=== PATIENT | female | born 1930 | race Caucasian/White ===

== ENCOUNTER 2018-11-18 15:28 | Inpatient (IN) | payer MEDICARE, MEDICAID ==
[~2018-11-18] VITALS: Ht 167.6 cm; Wt 98.0 kg
[2018-11-18] MEDS ORDERED: ALBUTEROL FS 2.5 MG/3 ML VIAL.NEB ONE (15:55)
[2018-11-18] MEDS ORDERED: IPRATROPIUM NEB FS 0.5 MG/2.5 ML AMPUL.NEB ONE (15:55)
[2018-11-18] MEDS ORDERED: MEROPENEM 1 G in IV NS 0.9% 100 ML IV ONE (16:00)
[2018-11-18] MEDS ORDERED: IPRATROPIUM NEB FS 0.5 MG/2.5 ML AMPUL.NEB NEB ONE (16:00)
[2018-11-18] MEDS ORDERED: methylPREDNISolone SOD SUCC 125 MG/2ML VIAL IV ONE (16:00)
[2018-11-18] MEDS ORDERED: ACETAMINOPHEN ES 500 MG TABLET PO ONE (16:00)
[2018-11-18] MEDS ORDERED: ALBUTEROL FS 2.5 MG/3 ML VIAL.NEB NEB ONE (16:00)
--- NOTE | 2018-11-18 16:02 | NUR ---
PT REC'D TO ER VIA EMS PT WAS AT AN [facility] IV STARTED RT AC 20G LABS SENT TO LAB CULTURES DRAWN MEDS GIVEN PER MD ORDER
[2018-11-18 16:04] LABS: BASOPHILS % (AUTO) 0.2 % (0.0-2.0); EOSINOPHILS % (AUTO) 1.9 % (0.0-6.0); HEMATOCRIT 34 % (33-45); HEMOGLOBIN 11.2 g/dL (11.5-14.8); LYMPHOCYTES # (AUTO) 1.2 /CMM (0.8-4.8); LYMPHOCYTES % (AUTO) 11.6 % (20.0-44.0); MEAN CORPUSCULAR HGB CONC 33 g/dl (31.0-36.0); MEAN CORPUSCULAR VOLUME 92 fL (82-100); MONOCYTES # (AUTO) 0.8 /CMM (0.1-1.30); MONOCYTES % (AUTO) 7.4 % (2.0-12.0); NEUTROPHILS # (AUTO) 8.3 /CMM (1.8-8.9); NEUTROPHILS % (AUTO) 78.9 % (43.0-81.0); PLATELET COUNT (AUTO) 279 /CMM (150-450); RED BLOOD CELL COUNT(AUTO) 3.68 MIL/uL (4.0-5.2); WHITE BLOOD COUNT (AUTO) 10.5 K/uL (4.3-11.0)
[2018-11-18] MEDS ORDERED: methylPREDNISolone SOD SUCC 125 MG/2ML VIAL ONE (16:04)
[2018-11-18] MEDS ORDERED: ACETAMINOPHEN ES 500 MG TABLET ONE (16:05)
[2018-11-18 16:16] LABS: CALCIUM, SERUM 9.4 mg/dL (8.5-10.1); CARBON DIOXIDE 28 mmol/L (21-32); CHLORIDE 102 mmol/L (98-107); GLUCOSE 116 mg/dL (74-106); SODIUM SERUM 138 mmol/L (136-145); UREA NITROGEN, BLOOD 17 mg/dL (7-18)
[2018-11-18 16:29] LABS: ALANINE AMINOTRANSFERASE 18 U/L (12-78); ALBUMIN 3.6 g/dL (3.4-5.0); ALKALINE PHOSPHATASE 91 U/L (46-116); ASPARTATE AMINOTRANSFERASE 18 U/L (15-37); B-TYPE NATRIURETIC PEPTIDE 818 PG/ML (0-125); BILIRUBIN,DIRECT 0.1 mg/dL (0.0-0.2); BILIRUBIN,TOTAL 0.5 mg/dL (0.2-1.0); TOTAL PROTEIN, SERUM 7.9 g/dL (6.4-8.2)
--- NOTE | 2018-11-18 16:44 | NUR ---
MEDS GIVEN PER MD ORDER
[2018-11-18] MEDS ORDERED: IV NS 0.9% 500 ML BAG IV ONE (17:00)
[2018-11-18] MEDS ORDERED: UMEC62.5 IH (17:10)
[2018-11-18] MEDS ORDERED: LORA0.5T PO (17:10)
[2018-11-18] MEDS ORDERED: CELE-85 PO (17:10)
[2018-11-18] MEDS ORDERED: HYDR-4077 PO (17:10)
[2018-11-18] MEDS ORDERED: ASPI-605 PO (17:10)
[2018-11-18] MEDS ORDERED: AMLO10TA7 PO (17:10)
[2018-11-18] MEDS ORDERED: ATOR20TA PO (17:10)
[2018-11-18] MEDS ORDERED: FURO20TA4 PO (17:10)
[2018-11-18] MEDS ORDERED: CALC500T52 PO (17:10)
[2018-11-18] MEDS ORDERED: CHOL20004 PO (17:10)
[2018-11-18] MEDS ORDERED: FLUT1DIS5 PO (17:10)
[2018-11-18] MEDS ORDERED: MONT10TA22 PO (17:10)
[2018-11-18] MEDS ORDERED: NEBI10TA2 PO (17:10)
[2018-11-18] MEDS ORDERED: TRAM50TA2 PO (17:10)
[2018-11-18] MEDS ORDERED: ALEN70TA6 PO (17:10)
--- NOTE | 2018-11-18 17:12 | NUR ---
CALLED NURSING SUP FOR BED.
--- NOTE | 2018-11-18 17:12 | NUR ---
CALLED [facility].
[2018-11-18] MEDS ORDERED: hydrALAZINE HCL IV 20 MG VIAL IV ONE (17:30)
[2018-11-18] MEDS ORDERED: hydrALAZINE HCL IV 20 MG VIAL ONE (17:42)
--- NOTE | 2018-11-18 17:43 | NUR ---
NURSING SUP GAVE TELE BED 118.
[2018-11-18] MEDS ORDERED: Z GUARD REMEDY 2 OZ OINT TP PRN (18:00)
[2018-11-18] MEDS ORDERED: MAG HYDROX/AL HYDROX/SIMETH 30 ML UDC PO PRN (18:00)
[2018-11-18] MEDS ORDERED: ONDANSETRON HCL/PF 4 MG/2 ML VIAL IVP PRN (18:00)
[2018-11-18] MEDS ORDERED: ZOLPIDEM TARTRATE 5 MG TABLET PO PRN (18:00)
[2018-11-18] MEDS ORDERED: MAGNESIUM HYDROXIDE 30 ML UDC PO PRN (18:00)
[2018-11-18] MEDS ORDERED: ACETAMINOPHEN 325 MG TABLET PO PRN (18:00)
[2018-11-18] MEDS ORDERED: hydrALAZINE HCL 50 MG TABLET PO PRN (18:00)
[2018-11-18] MEDS ORDERED: TRAMADOL HCL 50 MG TABLET PO PRN (18:00)
--- NOTE | 2018-11-18 18:30 | NUR ---
RN NOTES RECEIVED PATIENT FROM ER VIA [facility]. PATIENT A/A/0 X4, ABLE TO COMMUNICATE. ABLE TO MOVE SELF BED FROM BED. WITH NASAL CANNULA OXYGEN AT 2LPM. SKIN ASSESSMENT DONE: NOTED INTACT. IV ACCESS NOTED ON THE RAC G [address] AND PATENT. VITAL SIGNS NOTED AND BP NOTED AT 161/63, HR AT 82 TEMP AT 98.8, SATS AT 98%. PATIENT MADE COMFORTABLE AND WARMTH IN BED. ORIENTED TO UNIT AND USE OF CALL LIGHT. SAFETY MEASURES PUT IN PLACE. BED LOW AND LOCKED POSITION. CALL LIGHT PLACED WITHIN REACH. WILL CONTINUE TO MONITOR PATIENT AND CARRY OUT ADMITTING ORDERS ONCE IN.
--- NOTE | 2018-11-18 18:45 | NUR ---
RN NOTES PAGED DR. AGUILAR TO OBTAIN ADMITTING ORDERS
--- NOTE | 2018-11-18 19:30 | NUR ---
RN NOTES ENDORSED PATIENT FOR CONTINUITY OF CARE. FAMILY AT BEDSIDE WAITING FOR MD. MD AT THE UNIT AT THIS TIME
[2018-11-18 20:00] VITALS: BP 166/69
[2018-11-18] MEDS ORDERED: IPRATROPIUM NEB FS 0.5 MG/2.5 ML AMPUL.NEB NEB PRN (21:00)
[2018-11-18] MEDS ORDERED: GUAIFENESIN/CODEINE 10 ML UDC PO PRN (21:00)
[2018-11-18] MEDS ORDERED: MEROPENEM 1 G in IV NS 0.9% 100 ML IV SCH (21:00)
[2018-11-18] MEDS ORDERED: ALBUTEROL FS 2.5 MG/3 ML VIAL.NEB NEB PRN (21:00)
[2018-11-18] MEDS: HYDROCODONE/APAP 5/325MG 1 EACH TABLET PO PRN (21:14)
[2018-11-18] MEDS: METOPROLOL TARTRATE 50 MG TABLET PO SCH (21:14)
[2018-11-18] MEDS: ATORVASTATIN 10 MG TABLET PO SCH (21:16)
[2018-11-19] VITALS (9 sets, daily range): BP systolic 126–163; BP diastolic 53–75
[2018-11-19] MEDS ORDERED: MEROPENEM 1 G in IV NS 0.9% 100 ML IV SCH (05:00)
[2018-11-19] MEDS: HYDROCODONE/APAP 5/325MG 1 EACH TABLET PO PRN (07:04)
--- NOTE | 2018-11-19 07:10 | NUR ---
RN INITIAL NOTE PATIENT IN BED, ASLEEP BUT EASILY AROUSABLE TO NAME AND TOUCH. NOR[place]GIAN SPEAKING BUT UNDERSTANDS LITTLE SINHALA. ON NC 2L. NO COMPLAINS OF ANY SOB NOR PAIN AT THIS TIME. ON TELE MONITOR, SR. AM LABS PENDING. BED LOCKED AND IN LOWEST POSITION. CALL LIGHT WITHIN REACH. WILL CONTINUE TO MONITOR
--- NOTE | 2018-11-19 07:14 | NUR ---
RN NOTES ALERT AND ORIENTED X 4. UNABLE TO SPEAK HONDURAN BUT CAN UNDERSTAND HONDURAN. SEEN BY MD AT 2100 WITH NEW ORDERS FOR GUAIFENESIN WITH CODEINE AND DUONEB PRN. NOTED AND CARRIED OUT. GAVE NORCO FOR PAIN X 2 WITH RELIEF, ADMINISTERED DUONEB BY RT, AND GUAIFENESIN WITH CODEINE X 2 WITH HELP. NEEDS ATTENDED. KEPT CLEAN AND DRY. ENDORSED TO NEXT SHIFT FOR CONTINUITY OF CARE.
[2018-11-19 07:35] LABS: EOSINOPHILS % (AUTO) 0.1 % (0.0-6.0); HEMATOCRIT 33 % (33-45); HEMOGLOBIN 10.8 g/dL (11.5-14.8); LYMPHOCYTES # (AUTO) 0.7 /CMM (0.8-4.8); LYMPHOCYTES % (AUTO) 7.9 % (20.0-44.0); MEAN CORPUSCULAR HGB CONC 32 g/dl (31.0-36.0); MEAN CORPUSCULAR VOLUME 92 fL (82-100); MONOCYTES # (AUTO) 0.1 /CMM (0.1-1.30); MONOCYTES % (AUTO) 0.7 % (2.0-12.0); NEUTROPHILS # (AUTO) 8.6 /CMM (1.8-8.9); NEUTROPHILS % (AUTO) 91.3 % (43.0-81.0); PLATELET COUNT (AUTO) 255 /CMM (150-450); RED BLOOD CELL COUNT(AUTO) 3.62 MIL/uL (4.0-5.2); WHITE BLOOD COUNT (AUTO) 9.4 K/uL (4.3-11.0)
[2018-11-19 07:51] LABS: CALCIUM, SERUM 8.9 mg/dL (8.5-10.1); CREATININE 1.1 mg/dL (0.6-1.3); MAGNESIUM 1.8 mg/dL (1.8-2.4); PHOSPHORUS 2.9 mg/dL (2.5-4.9); POTASSIUM 4.4 mmol/L (3.5-5.1)
[2018-11-19] MEDS: MONTELUKAST SODIUM (10MG) 10 MG TABLET PO SCH (08:18)
[2018-11-19] MEDS: CELECOXIB 100 MG CAPSULE PO SCH (08:18)
[2018-11-19] MEDS: CHOLECALCIFEROL 1,000 UNIT TABLET (VIT D3) PO SCH (08:18)
[2018-11-19] MEDS: CALCIUM CARBONATE (1250) 500 MG TABLET PO SCH ×2 (08:18→16:18)
[2018-11-19] MEDS: LORAZEPAM 0.5 MG TABLET PO SCH (08:18)
[2018-11-19] MEDS: ASPIRIN EC 81 MG TABLET.DR PO SCH (08:18)
[2018-11-19] MEDS: METOPROLOL TARTRATE 50 MG TABLET PO SCH ×2 (08:19→21:24)
[2018-11-19] MEDS: AMLODIPINE BESYLATE 10 MG TABLET PO SCH (08:19)
[2018-11-19] MEDS: FLUTICASONE/VILANTEROL 1 EACH BLST.W.DEV IH SCH (08:19)
[2018-11-19] MEDS ORDERED: UMECLIDINIUM BROMIDE 62.5 MCG IH SCH (09:00)
[2018-11-19] MEDS ORDERED: FUROSEMIDE 20 MG TABLET PO SCH (09:00)
--- NOTE | 2018-11-19 09:30 | NUR ---
RN NOTE PATIENT'S MORNING BP WAS 163/69. WAS GIVEN HER MORNING BP MEDS, RECHECKED AT THIS TIME. BP IS NOW 140/65
--- NOTE | 2018-11-19 12:17 | NUR ---
RN NOTE DR AGUILAR AT BEDSIDE, PATIENT AWARE THAT SHE WILL BE SEEN BY DR VICTORIA, PERMASTONE APPLICATOR AND GET IN TOUCH WITH HER PERMASTONE APPLICATOR, DR MARIANA MURCIA
[2018-11-19] MEDS ORDERED: AZITHROMYCIN 250 MG TABLET PO SCH (13:00)
--- NOTE | 2018-11-19 19:00 | NUR ---
Received patient awake,alert,not in any distress or SOB,denies any pain,converses , coherent and appropriate.On room air ,tolerating without oxygen.comfort care done,needs attended.
--- NOTE | 2018-11-19 19:09 | NUR ---
RN CLOSING NOTE PATIENT IN BED, SITTING AND AWAKE. FAMILY AT BEDSIDE. ALL MEDS GIVEN. ALL NEEDS MET. NO COMPLAINS OF ANY PAIN NOR SOB AT THIS TIME. HAS A NEW SITE RIGHT FA #22 SL. LAST IV SITE WAS INFILTRATED AND REMOVED. BED LOCKED AND IN LOWEST POSITION. CALL LIGHT WITHIN REACH. WILL CONTINUE TO MONITOR. ENDORSED TO NOC SHIFT FOR CLEO
--- NOTE | 2018-11-19 21:00 | NUR ---
ambulated around the unit with a walker, tolerated even without oxygen,denies any SOB.
[2018-11-19] MEDS: ATORVASTATIN 10 MG TABLET PO SCH (21:24)
--- NOTE | 2018-11-19 21:30 | NUR ---
Patient denies any SOB after walking without the oxygen , but noted sdaturation only 91 % on room air,placed on nasal cannula 3 L/min for now.
[2018-11-20] VITALS (8 sets, daily range): BP systolic 139–178; BP diastolic 65–80
--- NOTE | 2018-11-20 | NUR ---
pATIENT ASLEEP ,STABLE,NOT IN ANY RESPIRATORY DISTRESS,BREATHING NON LABORED.
--- NOTE | 2018-11-20 04:00 | NUR ---
REMAINS STABLE,NOT IN ANY DISTRESS.
--- NOTE | 2018-11-20 06:00 | NUR ---
REMAINS STABLE,AWAKE,ALERT,NOT IN ANY DISTRESS, JUST ON ROOM AIR.
--- NOTE | 2018-11-20 07:00 | NUR ---
REPORT GIVEN TO KARRI GALVIN.PATIENT STABLE.
[2018-11-20 07:06] LABS: BASOPHILS % (AUTO) 0.1 % (0.0-2.0); HEMATOCRIT 30 % (33-45); HEMOGLOBIN 9.8 g/dL (11.5-14.8); LYMPHOCYTES # (AUTO) 1.6 /CMM (0.8-4.8); LYMPHOCYTES % (AUTO) 16.3 % (20.0-44.0); MEAN CORPUSCULAR HGB CONC 33 g/dl (31.0-36.0); MEAN CORPUSCULAR VOLUME 91 fL (82-100); MONOCYTES # (AUTO) 0.8 /CMM (0.1-1.30); MONOCYTES % (AUTO) 8.1 % (2.0-12.0); NEUTROPHILS # (AUTO) 7.5 /CMM (1.8-8.9); NEUTROPHILS % (AUTO) 75.5 % (43.0-81.0); PLATELET COUNT (AUTO) 242 /CMM (150-450); RED BLOOD CELL COUNT(AUTO) 3.27 MIL/uL (4.0-5.2); WHITE BLOOD COUNT (AUTO) 9.9 K/uL (4.3-11.0)
[2018-11-20 07:29] LABS: CALCIUM, SERUM 9.2 mg/dL (8.5-10.1); CREATININE 1.1 mg/dL (0.6-1.3); POTASSIUM 4.2 mmol/L (3.5-5.1)
--- NOTE | 2018-11-20 08:00 | NUR ---
RN NOTE: PATIENT REMAINS ALERT AWAKE ORIENTED X 4. ON ROOM AIR, NO BREATHING DISTRESS NOTED. DENIES CHEST PAIN & DISCOMFORT. AMBULATORY/INDEPENDENT WITH ADLS. SAFETY MEASURES OBSERVED. KEPT CLEAN & DRY. ENCOURAGE PATIENT TO USE CALL LIGHT FOR ASSISTANCE. CALL LIGHT WITHIN REACH. WILL CONTINUE TO MONITOR.
[2018-11-20] MEDS: LORAZEPAM 0.5 MG TABLET PO SCH (08:34)
[2018-11-20] MEDS: CELECOXIB 100 MG CAPSULE PO SCH (08:34)
[2018-11-20] MEDS: CHOLECALCIFEROL 1,000 UNIT TABLET (VIT D3) PO SCH (08:34)
[2018-11-20] MEDS: AMLODIPINE BESYLATE 10 MG TABLET PO SCH (08:35)
[2018-11-20] MEDS: ASPIRIN EC 81 MG TABLET.DR PO SCH (08:35)
[2018-11-20] MEDS: MONTELUKAST SODIUM (10MG) 10 MG TABLET PO SCH (08:35)
[2018-11-20] MEDS: CALCIUM CARBONATE (1250) 500 MG TABLET PO SCH (08:35)
[2018-11-20] MEDS: FLUTICASONE/VILANTEROL 1 EACH BLST.W.DEV IH SCH (08:36)
[2018-11-20] MEDS: METOPROLOL TARTRATE 50 MG TABLET PO SCH (08:36)
[2018-11-20] MEDS ORDERED: FUROSEMIDE 40 MG TABLET PO SCH (09:00)
[2018-11-20] MEDS ORDERED: AZIT250T PO (11:21)
[2018-11-20] MEDS ORDERED: AZITHROMYCIN 250 MG TABLET PO SCH (13:00)
--- NOTE | 2018-11-20 13:27 | NUR ---
RN NOTE: PATIENT DISCHARGE HOME ALERT AWAKE ORIENTED X 4. ON ROOM AIR, DENIES DIFFICULTY BREATHING & CHEST PAIN. DISCHARGE INSTRUCTIONS GIVEN TO THE PATIENT & GRAND DAUGHTER AT BEDSIDE. BOTH VERBALIZE TO UNDERSTAND. IV CATH REMOVED, APPLIED PRESSURE DRESSING. NOTED SBP ELEVATED >160, HYDRALAZINE 50MG PO 1 TAB, GIVEN. DOCUMENTED RECENT BLOOD PRESSURE IN FLOW SHEET. PATIENT LEFT WITH ALL BELONGINGS VIA PRIVATE CAR WITH GRAND DAUGHTER.
[2018-11-24] MEDS ORDERED: ALENDRONATE 70 MG TABLET PO SCH (07:30)
== END 2018-11-20 13:23 | disposition home or self-care (01) | DRG 193 ==
LOC: ER 15:35 → TELE1 17:50
PROVIDERS: ADMIT Family Medicine; ATTEND Hospitalist
DX: J15.9 Unspecified bacterial pneumonia (principal); I50.33 Acute on chronic diastolic (congestive) heart failure; E87.2 Acidosis; I11.0 Hypertensive heart disease with heart failure; G89.29 Other chronic pain; Z79.899 Other long term (current) drug therapy; Z79.83 Long term (current) use of bisphosphonates; Z79.82 Long term (current) use of aspirin; Z79.1 Long term (current) use of non-steroidal anti-inflammatories (NSAID); M19.90 Unspecified osteoarthritis, unspecified site; J20.9 Acute bronchitis, unspecified
CPT/HCPCS: 36415; 71045-TC; 80048-TC; 80061-TC; 80076-TC; 83605-TC; 83735-TC; 83880; 84100-TC; 84484-TC; 85025-TC; 85730-TC; 87040-TC; 87081-TC; 93307-TC; A4216; G0378; J0360; J2185; J2930; J7030

== ENCOUNTER 2018-11-21 11:46 | Emergency (ER) | payer MEDICARE, MEDICAID ==
[~2018-11-21] VITALS: Ht 165.1 cm; Wt 99.8 kg
[~2018-11-21 11:46] MED LIST: ALEN70TA6 PO; AMLO10TA7 PO; ASPI-605 PO; ATOR20TA PO; AZIT250T PO; CALC500T52 PO; CELE-85 PO; CHOL20004 PO; FLUT1DIS5 PO; FURO20TA4 PO; HYDR-4077 PO; LORA0.5T PO; MONT10TA22 PO; NEBI10TA2 PO; TRAM50TA2 PO; UMEC62.5 IH
--- NOTE | 2018-11-21 11:56 | NUR ---
BIBRA 77 C/O LEFT ARM TRAUMA S/P GLF, -KO. PATIENT A/OX3, ST LUCIAN SPEAKING, BREATHING EVEN AND UNLABORED, ATTACHED TO THE LIGHT INDUSTRIAL SUPERVISOR.
--- NOTE | 2018-11-21 12:00 | NUR ---
KEPT SHOULDER IMMOBILIZED, PATIENT C/O PAIN, MOANING AND GROANING. INSTRUCTED PATIENT TO LIMIT MOBILITY.
[2018-11-21] MEDS ORDERED: HYDROMORPHONE 1 MG/1 ML DISP.SYRIN ONE (12:10)
[2018-11-21] MEDS ORDERED: ONDANSETRON HCL/PF 4 MG/2 ML VIAL ONE (12:18)
[2018-11-21] MEDS ORDERED: KETOROLAC TROMETHAMINE 15 MG/ML VIAL ONE (12:18)
[2018-11-21] MEDS ORDERED: ONDANSETRON HCL/PF 4 MG/2 ML VIAL IV ONE (12:30)
[2018-11-21] MEDS ORDERED: HYDROMORPHONE INJ 0.5 MG/0.5 ML SYRINGE IV ONE ×2 (12:30→13:00)
[2018-11-21] MEDS ORDERED: KETOROLAC TROMETHAMINE INJ 30 MG/ML VIAL IV ONE (12:30)
[2018-11-21] MEDS ORDERED: HYDROMORPHONE INJ 2 MG/ML DISP.SYRIN ONE (12:50)
[2018-11-21] MEDS ORDERED: KETAMINE HCL (500MG/10ML) 50 MG/ML VIAL IV ONE (13:00)
[2018-11-21] MEDS ORDERED: KETAMINE HCL (500MG/10ML) 50 MG/ML VIAL ONE (13:23)
--- NOTE | 2018-11-21 14:06 | NUR ---
S/P LEFT SHOULDER CLOSED REDUCTION COMPLETED, PATIENT STILL ASLEEP. VITALS STABLE. BREATHING EVEN AND UNLABORED, NO RESPIRATORY DISTRESS NOTED, RT AT BEDSIDE. VITALS STABLE.
--- NOTE | 2018-11-21 14:26 | NUR ---
SODA DISPENSER AT BEDSIDE FOR XRAY ON LEFT SHOULDER S/P REDUCTION.
--- NOTE | 2018-11-21 15:10 | NUR ---
PATIENT AROUSABLE TO VERBAL STIMULI. STILL SLEEPY, VITALS STABLE. NO DISTRESS NOTED. FAMILY AT BEDSIDE.
--- NOTE | 2018-11-21 18:39 | NUR ---
PATIENT ALERT AND ORIENTED X3, VERBALLY RESPONSIVE. FAMILY AT BEDSIDE, WILL TAKE PATIENT HOME. PATIENT IN NO DISTRESS, VITALS STABLE. O2 SAT IN ROOM AIR 94%. IV removed. Catheter intact and site benign. Pressure and 4x4 applied to site. No bleeding noted.Patient discharged to home in stable condition. Written and verbal after care instructions given to daughter and verbalizes understanding of instruction.
[2018-11-21 18:41] VITALS: BP 142/87
== END 2018-11-21 18:41 | disposition home or self-care (01) ==
LOC: ER 11:51
DX: S43.015A Anterior dislocation of left humerus, initial encounter (principal); S43.035A Inferior dislocation of left humerus, initial encounter; J44.9 Chronic obstructive pulmonary disease, unspecified; I10 Essential (primary) hypertension; M54.9 Dorsalgia, unspecified; E66.9 Obesity, unspecified; Z68.36 Body mass index [BMI] 36.0-36.9, adult; Z99.81 Dependence on supplemental oxygen; Z88.0 Allergy status to penicillin; Z79.899 Other long term (current) drug therapy; Z79.82 Long term (current) use of aspirin; W18.39XA Other fall on same level, initial encounter; Y93.89 Activity, other specified; Y92.89 Other specified places as the place of occurrence of the external cause; Y99.8 Other external cause status
CPT/HCPCS: 23650; 71045; 73020 ×2; 73060; 96374; 96375; 96376; 99152; 99285; J1170 ×2; J1885; J2405; J3490; J7030; G0500